=== PATIENT | female | born 1975 | race Caucasian/White ===

== ENCOUNTER 2016-10-23 06:00 | Day surgery (SDC) | payer OTHER ==
[~2016-10-23] VITALS: Ht 165.1 cm; Wt 83.0 kg
[2016-10-23] MEDS ORDERED: ACETAMINOPHEN/CODEINE 300/30MG 1 TAB PO PRN (07:35)
[2016-10-23] MEDS ORDERED: ONDANSETRON 4 MG/2 ML VIAL IVP PRN ×2 (07:35→10:20)
[2016-10-23] MEDS ORDERED: MORPHINE SULFATE 4 MG/ML SYR IM/IVP PRN (07:35)
[2016-10-23] MEDS ORDERED: IBUPROFEN 800 MG TAB PO PRN (07:35)
[2016-10-23] MEDS ORDERED: MOTRIN600 MG PO (07:39)
[2016-10-23] MEDS ORDERED: BUPIVACAINE-MPF/EPI 0.5% 30 ML VIAL INJ ONE (09:02)
[2016-10-23] MEDS ORDERED: fentaNYL 0.05 MG/ML VIAL ONE (09:44)
[2016-10-23] MEDS ORDERED: ROCURONIUM 50 MG/5 ML VIAL IV ONE (09:50)
[2016-10-23] MEDS ORDERED: DEXAMETHASONE 4 MG/ML VIAL IVP ONE (09:50)
[2016-10-23] MEDS ORDERED: KETOROLAC 30 MG/ML VIAL IVP ONE (09:50)
[2016-10-23] MEDS ORDERED: PHENYLEPHRINE 10 MG/ML VIAL IM ONE (09:50)
[2016-10-23] MEDS ORDERED: PROPOFOL 200 MG/20 ML VIAL IV ONE (09:50)
[2016-10-23] MEDS ORDERED: GLYCOPYRROLATE 0.2 MG/ML VIAL IV ONE (09:50)
[2016-10-23] MEDS ORDERED: DESFLURANE 240 ML BTL INH ONE (09:50)
[2016-10-23] MEDS ORDERED: HYDROmorphone 1 MG/ML AMP IVP PRN (10:20)
== END 2016-10-23 12:30 | disposition home or self-care (01) ==
LOC: MDS 06:00 → MMU 06:05 → MDS 12:30
PROVIDERS: ATTEND Obstetrics & Gynecology
DX: N73.6 Female pelvic peritoneal adhesions (postinfective) (principal); N94.6 Dysmenorrhea, unspecified; N80.0 Endometriosis of uterus
CPT/HCPCS: 36415; 58660; 80053; 82374; 84702; 85025; J0690; J3010; J3490; J7060; J7120